=== PATIENT | male | born 1960 | race Caucasian/White ===

== ENCOUNTER 2018-07-27 10:44 | Day surgery (SDC) | payer OTHER ==
[2018-07-27] MEDS ORDERED: LIDOCAINE 1% 300 MG/30 ML SDV SC ONE (10:48)
[2018-07-27] MEDS ORDERED: LIDOCAINE 1% 300 MG/30 ML SDV IF ONE (11:00)
--- NOTE | 2018-07-27 11:29 | PDGENHP ---
History & Physical Chief Complaint: h.o. syncope Relevant Physical Exam: s1s2 rrr cta ao3 Cardiorespiratory Assessment: for LINQ explant
[2018-07-27] MEDS ORDERED: BUPIVACAINE 0.75% 10 ML SDV ONE (12:25)
[2018-07-27] MEDS ORDERED: LIDOCAINE 1% 300 MG/30 ML SDV ONE (12:25)
--- NOTE | 2018-07-27 13:27 | CPR ---
DATE OF PROCEDURE: 07/27/2018 PROCEDURE PERFORMED: Explantation of [facility] Confirm loop recorder. INDICATION: Device was placed for indication of syncope, device is at end of life. PROCEDURE: Written informed consent was obtained. Local anesthetic used, lidocaine. Patient is pre pped and draped in the usual sterile fashion. Confirm device was removed using standard technique. Wound was closed with 2-0 Vicryl and angelo. There were no complications. The patient requested no sedation be administered so that he could drive home postprocedure. /[id number]/MODL
== END 2018-07-27 13:25 | disposition home or self-care (01) ==
LOC: FCATH 10:44
PROVIDERS: ATTEND Internal Medicine Cardiovascular Disease
PROC: 0JPT02Z Removal of Monitoring Device from Trunk Subcutaneous Tissue and Fascia, Open Approach (ICD-10-PCS; principal; 2018-07-27)
DX: Z45.09 Encounter for adjustment and management of other cardiac device (principal); R55 Syncope and collapse